=== PATIENT | male | born 1930 | race Caucasian/White ===

== ENCOUNTER → 2016-07-14 | Outpatient (CLI) | payer OTHER ==
[2016-07-14 08:38] LABS: BILIRUBIN,URINE NEGATIVE (NEG); CLARITY,URINE CLEAR (CLEAR); GLUCOSE, URINE (UA) NEGATIVE (NEG); LEUKOCYTE ESTERASE ,URINE NEGATIVE (NEG); NITRATE,URINE NEGATIVE (NEG); OCCULT BLOOD,URINE MODERATE (NEG); PH,URINE 6.5 (5.0-8.5); PROTEIN,URINE NEGATIVE (NEG); UROBILINOGEN,URINE 0.2 EU/dL (0.2)
[2016-07-14 08:39] LABS: URINE SAMPLE TYPE CLEAN CATCH URINE
[2016-07-14 08:39] LABS: BASOPHILS # (AUTO) 0.03 10*3/UL; BASOPHILS % (AUTO) 0.5 % (0-1); EOSINOPHILS % (AUTO) 1.9 % (0-8); HEMATOCRIT 45.1 % (42.0-52.0); HEMOGLOBIN 15.1 g/dL (14.0-18.0); IMM GRAN % (AUTO) 0.2 % (0-5); IMM GRAN# (AUTO) 0.01 10*3/UL; LYMPHOCYTES # (AUTO) 1.82 10*3/uL; LYMPHOCYTES % (AUTO) 32.1 % (10-50); MEAN CORPUSCULAR HEMOGLOBIN 28.4 PG (27-31); MEAN CORPUSCULAR HGB CONC 33.5 g/dL (33-37); MONOCYTES # (AUTO) 0.57 10*3/UL (0.3-0.8); MONOCYTES % (AUTO) 10.1 % (5-15); NEUTROPHILS # (AUTO) 3.13 10*3/UL; NEUTROPHILS % (AUTO) 55.2 % (50-80); RDW COEFFICIENT OF VARIATION 15.6 % (11.5-14.5); RED BLOOD COUNT 5.31 10^6/uL (4.70-6.10); WHITE BLOOD COUNT 5.67 10^3/uL (4.8-10.8)
[2016-07-14 08:40] LABS: PLATELET MORPHOLOGY COMMENT NORMAL MORPHOLOGY (NORM)
[2016-07-14 08:44] LABS: WBC,URINE 0
[2016-07-14 09:35] LABS: BILIRUBIN,TOTAL 0.8 mg/dL (0.3-1.2); BUN/CREATININE RATIO 21.42 (6-20); CREATININE 0.7 mg/dL (0.70-1.50); POTASSIUM 4.4 meq/L (3.8-5.2); TOTAL PROTEIN 6.6 g/dL (6.1-8.0)
== END ==
LOC: LAB 07:50
PROVIDERS: ATTEND Nurse Practitioner
DX: I48.2 Chronic atrial fibrillation (principal); I10 Essential (primary) hypertension; M62.81 Muscle weakness (generalized); G93.49 Other encephalopathy; N40.0 Benign prostatic hyperplasia without lower urinary tract symptoms
CPT/HCPCS: 80053; 80061; 81001; 84153; 84443; 85025